=== PATIENT | male | born 1975 | race Caucasian/White ===

== ENCOUNTER 2017-09-10 11:36 | Emergency (ER) | payer BC, OTHER ==
[2017-09-10 11:45] VITALS: BP 127/77
[2017-09-10] MEDS ORDERED: CEPHALEXIN 500 MG CAPSULE PO ONE (12:39)
[2017-09-10] MEDS ORDERED: DEXAMETHASONE SOD PHOS INJ 10 MG/1 ML VIAL IM ONE (12:39)
--- NOTE | 2017-09-10 12:46 | ER Document Report ---
ED Extremity Problem, Upper - General Chief Complaint: Dog Bite Stated Complaint: RIGHT WRIST PAIN, SWELLING Time Seen by Provider: 09/10/17 12:27 Mode of Arrival: Ambulatory Information source: Patient Notes: 42-year-old male presents to ED for complaint of right wrist pain. He states he was bit by dog on August 14. He states his wrist started swelling on August 29 so he went to [facility] on August 31. He states they did x-rays gave him a Rocephin shot and started him on amoxicillin. He states that his wrist was feeling much better he had 100% motion and the pain was gone on Monday so he quit taking the antibiotics. He states he was fine until Monday has restarted hurting a little bit today his wrist is swollen and more painful. Patient is alert and oriented respirations regular and unlabored speaking in full sentences walks with a even steady gait. There is no redness to the wrist but there is mild swelling and tender to palpation. TRAVEL OUTSIDE OF THE [place] IN LAST 30 DAYS: No - HPI Patient complains to provider of: Pain, Swelling, Right, Wrist Onset: Other - Yesterday dog bite was on August 14 Recent injury: Yes Where: Home Quality of pain: Achy, Pressure, Sharp Severity of pain: Moderate Pain Level: 2 Context: Animal bite - Right second Associated symptoms: Other - Right wrist pain Exacerbated by: Movement, Exertion Relieved by: Rest, Positioning Similar symptoms previously: Yes Recently seen / treated by doctor: Yes - Related Data Allergies/Adverse Reactions: aspirin Allergy (Verified 09/10/17 11:37) ibuprofen Allergy (Verified 09/10/17 11:37) Past Medical History - General Information source: Patient - Social History Smoking Status: Never Smoker Cigarette use (# per day): No Chew tobacco use (# tins/day): No Smoking Education Provided: No Frequency of alcohol use: Social Drug Abuse: None Occupation: Heating and air Lives with: Family Family History: Reviewed & Not Pertinent Patient has suicidal ideation: No Patient has homicidal ideation: No - Past Medical History Cardiac Medical History: Reports: None Pulmonary Medical History: Reports: None EENT Medical History: Reports: None Neurological Medical History: Reports: None Endocrine Medical History: Reports: None Renal/ Medical History: Reports: None Malignancy Medical History: Reports None GI Medical History: Reports: None Musculoskeletal Medical History: Reports Hx Musculoskeletal Trauma Skin Medical History: Reports None Psychiatric Medical History: Reports: None Traumatic Medical History: Reports: Hx Fractures - Leg Infectious Medical History: Reports: None Past Surgical History: Reports: Hx Tonsillectomy - Immunizations Immunizations up to date: Yes Hx Diphtheria, Pertussis, Tetanus Vaccination: Yes Review of Systems - Review of Systems Constitutional: No symptoms reported EENT: No symptoms reported Cardiovascular: No symptoms reported Respiratory: No symptoms reported Gastrointestinal: No symptoms reported Genitourinary: No symptoms reported Male Genitourinary: No symptoms reported Musculoskeletal: Other - Right wrist pain and swelling Skin: No symptoms reported Hematologic/Lymphatic: No symptoms reported Neurological/Psychological: No symptoms reported Physical Exam - Vital signs Vitals: Temp Pulse Resp BP Pulse Ox 97.9 F 67 16 127/77 H 97 09/10/17 11:43 09/10/17 11:43 09/10/17 11:43 09/10/17 11:43 09/10/17 11:43 Interpretation: Normal - General General appearance: Appears well, Alert - HEENT Head: Normocephalic, Atraumatic Eyes: Normal Pupils: PERRL - Respiratory Respiratory status: No respiratory distress Chest status: Nontender Breath sounds: Normal Chest palpation: Normal - Cardiovascular Rhythm: Regular Heart sounds: Normal auscultation Murmur: No - Abdominal Inspection: Normal Distension: No distension Bowel sounds: Normal Tenderness: Nontender Organomegaly: No organomegaly - Back Back: Normal, Nontender - Extremities General upper extremity: Normal color, Normal ROM, Normal temperature General lower extremity: Normal inspection, Nontender, Normal color, Normal ROM , Normal temperature, Normal weight bearing. No: Martha's sign Wrist: Tender, Limited ROM - due to pain, Other - healing wounds to right wrist. No: Abrasion, Axial load of thumb pain, Deformity, Dislocation, Ecchymosis, Navicular tenderness Hand: Swelling - Neurological Neuro grossly intact: Yes Cognition: Normal Orientation: AAOx4 [place] Coma Scale Eye Opening: Spontaneous [place] Coma Scale Verbal: Oriented Nadja Coma Scale Motor: Obeys Commands [place] Coma Scale Total: 15 Speech: Normal Motor strength normal: LUE, RUE, LLE, RLE Sensory: Normal - Psychological Associated symptoms: Normal affect, Normal mood - Skin Skin Temperature: Warm Skin Moisture: Dry Skin Color: Normal Course - Vital Signs Vital signs: Temp Pulse Resp BP Pulse Ox 97.9 F 67 16 127/77 H 97 09/10/17 11:43 09/10/17 11:43 09/10/17 11:43 09/10/17 11:43 09/10/17 11:43 Discharge - Discharge Clinical Impression: Pain and swelling of right wrist Condition: Stable Disposition: HOME, SELF-CARE Instructions: Forearm Exercise Program ([facility]) Additional Instructions: You were seen today for pain and swelling to your right wrist. Acetaminophen Acetaminophen may be taken for pain relief or fever control. It's much safer than aspirin, offering a wider range of "safe" dosages. It is safe during . Some brand names are Tylenol, Panadol, Datril, Anacin 3, Tempra, and Liquiprin. Acetaminophen can be repeated every four hours. The following are maximum recommended dosages: WEIGHT Dose Drops Elixir Chewable( 80mg) (LBS.) drprs=droppers tsp=teaspoon 6 40 mg .4 ml (1/2) 6-11 80 mg .8 ml (full) 1/2 tsp 1 tab 12-16 120 mg 1 1/2 drprs 3/4 tsp 1 1/2 tabs 17-23 160 mg 2 drprs 1 tsp 2 tabs 24-30 240 mg 3 drprs 1 1/2 tsp 3 tabs 30-35 320 mg 2 tsp 4 tabs 36-41 360 mg 2 1/4 tsp 4 1 /2 tabs 42-47 400 mg 2 1/2 tsp 5 tabs 48-53 480 mg 3 tsp 6 tabs 54-59 520 mg 3 1/4 tsp 6 1 /2 tabs 60-64 560 mg 3 1/2 tsp 7 tabs 65-70 600 mg 3 3/4 tsp 7 1 /2 tabs 71-76 640 mg 4 tsp 8 tabs 77-82 720 mg 4 1/2 tsp 9 tabs 83-88 800 mg 5 tsp 10 tabs >89 pounds or adults 650 mg to 900 mg Acetaminophen can be repeated every four hours. Maximum daily dose not to exceed 4000 mg. These maximum recommended dosages are slightly higher than the dosages written on the product container, but these dosages are very safe and well below the toxic dosage for acetaminophen. Cephalexin The antibiotic you've been prescribed is a member of the cephalosporin class. This type of antibiotic covers a wide variety of infections, including those of the skin, lungs, and urinary tract. It's useful for staph infections. This antibiotic is slightly similar to the penicillin family. In rare cases , a person who is allergic to penicillin will also be allergic to this medication. If you have had a severe allergic reaction to penicillin, and have not taken this antibiotic since that time, notify your doctor. Antibiotics which cover many germs ("broad spectrum" antibiotics) are more likely to cause diarrhea or "yeast" infections. Women prone to vaginal yeast problems may suffer an attack after taking this antibiotic. In infants, oral thrush (white spots "stuck" on the cheek) or yeast diaper rash may result. See your doctor if these problems occur. Call at once if you develop itching, hives , shortness of breath, or lightheadedness. ICE & ELEVATION: Apply ice packs frequently against the painful area. Many different schedules are recommended, such as "20 minutes on, 20 minutes off" or "one hour ice, two hours rest." If you need to work, you may need to go longer between ice treatments. You should plan to have the area ice packed AT LEAST one- fourth of the time. The ice should be applied over the wrap, tape, or splint, or over a layer of cloth -- not directly against the skin. Some ice bags have a built-in cloth and can be put directly on the skin. Your injured part should be elevated as much as possible over the next 48 hours. Try to keep the injury above the level of the heart. Avoid use of the injured area. Elevation and rest will decrease the swelling. FOLLOW-UP CARE: If you have been referred to a physician for follow-up care, call the physician s office for an appointment as you were instructed or within the next two days. If you experience worsening or a significant change in your symptoms, notify the physician immediately or return to the Emergency Department at any time for re-evaluation. Prescriptions: Cephalexin Monohydrate [Keflex 500 mg Capsule] 500 mg PO Q6H 5 Days capsule Referrals: SREE MANSFIELD DO [NO LOCAL MD] - Follow up as needed TYSON VALENZUELA MD [ACTIVE STAFF] - Follow up as needed
== END 2017-09-10 13:04 | disposition home or self-care (01) ==
LOC: ER 11:36
DX: M25.531 Pain in right wrist (principal); W54.0XXD Bitten by dog, subsequent encounter; M25.431 Effusion, right wrist; S61.551D Open bite of right wrist, subsequent encounter; Z88.6 Allergy status to analgesic agent
CPT/HCPCS: 99283; 96372; J1100

== ENCOUNTER 2017-09-24 10:54 | Emergency (ER) | payer OTHER ==
[2017-09-24 11:15] VITALS: BP 124/81
--- NOTE | 2017-09-24 11:50 | ER Document Report ---
ED General - General Chief Complaint: Wrist Pain Stated Complaint: WRIST SWELLING Time Seen by Provider: 09/24/17 11:39 Mode of Arrival: Ambulatory Information source: Patient Notes: 42-year-old male presents with complaint of right wrist pain that has been ongoing for several weeks. Patient reports a history of a dog bite on August 14. He was seen at [facility] at that time and given a shot of Rocephin and placed on Augmentin. Patient was bitten by his own dog who is up-to-date with immunizations. He did have improvement of his pain and swelling but this returned 2 weeks ago and he was seen again in the emergency department. Patient was placed on erythromycin at that time despite no evidence of erythema as far as previous documentation states. Patient is now here complaining of increased pain and swelling of the right wrist despite no further injury. Patient states that he completed his erythromycin 5 days ago. He denies any fever, chills, nausea, vomiting, redness of the arm. Patient is scheduled to follow-up with his orthopedic surgeon but has not done so yet. 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 TRAVEL OUTSIDE OF THE [place] IN LAST 30 DAYS: No - HPI Onset: Other Onset/Duration: Gradual, Intermittent Quality of pain: Achy Severity: Mild Associated symptoms: None. denies: Fever, Nausea Exacerbated by: Movement Similar symptoms previously: Yes Recently seen / treated by doctor: Yes - 09/10/17 - Related Data Allergies/Adverse Reactions: aspirin Allergy (Verified 09/24/17 10:55) ibuprofen Allergy (Verified 09/24/17 10:55) Past Medical History - General Information source: Patient, [facility] Records - Social History Smoking Status: Never Smoker Chew tobacco use (# tins/day): Yes Frequency of alcohol use: None Drug Abuse: None Lives with: Family Family History: Reviewed & Not Pertinent Patient has suicidal ideation: No Patient has homicidal ideation: No - Medical History Medical History: Negative Renal/ Medical History: Denies: Hx Peritoneal Dialysis Musculoskeletal Medical History: Reports Hx Musculoskeletal Trauma Traumatic Medical History: Reports: Hx Fractures - Leg Past Surgical History: Reports: Hx Tonsillectomy - Immunizations Immunizations up to date: Yes Hx Diphtheria, Pertussis, Tetanus Vaccination: Yes Review of Systems - Review of Systems Notes: REVIEW OF SYSTEMS: CONSTITUTIONAL : Denies fever, chills, or sweats. Denies recent illness. Denies weight loss, recent hospitalizations. EENT: Denies visual changes, eye pain. Denies nasal or sinus congestion or discharge. Denies sore throat, oral lesions, difficulty swallowing. CARDIOVASCULAR: Denies chest pain. Denies palpitations. Denies lower extremity edema. RESPIRATORY: Denies cough, cold, or chest congestion. Denies shortness of breath, wheezing. GASTROINTESTINAL: Denies abdominal pain or distention. Denies nausea, vomiting , or diarrhea. Denies blood in vomitus, stools, or per rectum. Denies black, tarry stools. Denies constipation. GENITOURINARY: Denies difficulty urinating, painful urination, frequency, blood in urine, or vaginal discharge. MUSCULOSKELETAL: Denies back or neck pain or stiffness. SKIN: Denies rash, lesions or sores. HEMATOLOGIC : Denies easy bruising or bleeding. LYMPHATIC: Denies swollen glands. NEUROLOGICAL: Denies confusion or altered mental status. Denies passing out or loss of consciousness. Denies dizziness or lightheadedness. Denies headache. Denies weakness or paralysis. Denies problems difficulty with ambulation, slurred speech. Denies sensory loss, numbness, or tingling. Denies seizures. PSYCHIATRIC: Denies anxiety or stress. Denies depression, suicidal ideation, or homicidal ideation. Denies visual or auditory hallucinations. Physical Exam - Vital signs Vitals: Temp Pulse Resp BP Pulse Ox 98.2 F 62 16 124/81 100 09/24/17 11:13 09/24/17 11:13 09/24/17 11:13 09/24/17 11:13 09/24/17 11:13 Interpretation: No: Tachycardic, Febrile - Notes Notes: PHYSICAL EXAMINATION: GENERAL: Well-appearing, well-nourished and in no acute distress. HEAD: Atraumatic, normocephalic. EYES: Pupils equal round and reactive to light, extraocular movements intact, sclera anicteric, conjunctiva are normal. ENT: Nares patent, oropharynx clear without exudates. Moist mucous membranes. NECK: Normal range of motion, supple without lymphadenopathy LUNGS: Breath sounds clear to auscultation bilaterally and equal. No wheezes rales or rhonchi. HEART: Regular rate and rhythm without murmurs ABDOMEN: Soft, nontender, nondistended abdomen. No guarding, no rebound. No masses appreciated. Musculoskeletal: Mild swelling of right wrist. No erythema, warmth, induration , streaking. Mild pain with range of motion. NEUROLOGICAL: Cranial nerves grossly intact. Normal speech, normal gait. Normal sensory, motor exams PSYCH: Normal mood, normal affect. SKIN: Warm, Dry, normal turgor, no rashes or lesions noted. Course - Re-evaluation Re-evalutation: 09/24/17 12:03 42-year-old male presents 6 weeks after being bitten by his dog and the right hand and wrist complaining of increasing swelling and pain. Is undergone 2 rounds of antibiotic with his last round completed 5 days ago. Today patient is afebrile, normotensive and not tachycardic. He does not appear toxic or dehydrated. Wrist is mildly swollen but has no evidence of infection including warmth, erythema or streaking. I feel that after 2 rounds of antibiotics and a dog bite that occurred over 6 weeks ago if an infection was present it would be clear. Patient is to follow-up with his orthopedic surgeon Dr. Galaviz on September 26. I did offer the patient an x-ray and a brace which he is declining. He is insisting on antibiotics which I do not feel is necessary at this time. Patient discharged home in stable condition. - Vital Signs Vital signs: Temp Pulse Resp BP Pulse Ox 98.2 F 62 16 124/81 100 09/24/17 11:13 09/24/17 11:13 09/24/17 11:13 09/24/17 11:13 09/24/17 11:13 Discharge - Discharge Clinical Impression: Wrist pain Qualifiers: Laterality: right Qualified Code(s): M25.531 - Pain in right wrist Condition: Good Disposition: HOME, SELF-CARE Instructions: Animal Bites ([facility]) Additional Instructions: Your exam today showed no evidence of erythema warmth or infection. You have recently completed 2 rounds of antibiotics and at this time I do not feel another course of antibiotics would be beneficial. Please follow-up with your orthopedic surgeon Dr. Galaviz on Monday as scheduled.
== END 2017-09-24 11:48 | disposition home or self-care (01) ==
LOC: ER 10:54
DX: M25.531 Pain in right wrist (principal); M79.89 Other specified soft tissue disorders
CPT/HCPCS: 99283